=== PATIENT | male | born 1985 | race Caucasian/White ===

== ENCOUNTER 2016-11-18 10:41 | Emergency (ER) | payer OTHER ==
[2016-11-18 11:13] VITALS: BMI 30.3
--- NOTE | 2016-11-18 11:19 | PDOC ---
History of Present Illness - General History Source: Patient Exam Limitations: No Limitations - History of Present Illness Initial Comments: 11/18/16 11:52 The patient is a 30-year-old man with a significant past medical history of obesity and hypertension (recently started on medications on 10/2016) who presents to the emergency department with complaints of chest pain this morning. He states that he was working around the house when he suddenly felt short of breath followed by an episode of diaphoresis and chest pain. He states that he has experienced this in the past for which it was attributed to his anxiety. Patient states that he is currently stressed out and does not know why. No associated symptoms of fever, chills, leg pain/swelling, abdominal pain , back pain, nausea, vomiting. Allergies: No Known Drug Allergies Past Surgical History: None reported. Social History: Current everyday cigarette smoker (approximately 10 cigarettes/ day). No EtOH and recreational drug use. Primary Care Physician: Dr. Edenilson Martinez <Rosa Maria Andres - Last Filed: 11/18/16 12:11> <Soraya Phillips - Last Filed: 11/18/16 22:09> - General Chief Complaint: Chest Pain Stated Complaint: CHEST PAIN Time Seen by Provider: 11/18/16 10:59 Past History <Rosa Maria Andres - Last Filed: 11/18/16 12:11> - Past Medical History HTN: Yes (recently started on bp meds 10/31) Other medical history: obesity - Psycho/Social/Smoking Cessation Hx Suicidal Ideation: No Smoking History: Current every day smoker Number of Cigarettes Smoked Daily: 10 Information on smoking cessation initiated: Yes 'Breaking Loose' booklet given: 11/18/16 Hx Alcohol Use: No Drug/Substance Use Hx: No Substance Use Type: None <Soraya Phillips - Last Filed: 11/18/16 22:09> - Past Medical History Allergies/Adverse Reactions: Allergies Allergy/AdvReac Type Severity Reaction Status Date / Time No Known Allergies Allergy Verified 11/18/16 11:01 Home Medications: Ambulatory Orders Aspirin [ASA -] 81 mg PO DAILY 11/18/16 Lisinopril [Zestril] 10 mg PO DAILY 11/18/16 Review of Systems - Review of Systems Able to Perform ROS?: Yes Comments:: 11/18/16 11:52 GENERAL/CONSTITUTIONAL: Yes: Diaphoretic. No fever or chills. No weakness. HEAD, EYES, EARS, NOSE AND THROAT: No change in vision. No ear pain or discharge. No sore throat. CARDIOVASCULAR: Yes: Chest Pain. Shortness of breath. RESPIRATORY: No cough, wheezing, or hemoptysis. GASTROINTESTINAL: No nausea, vomiting, diarrhea or constipation. GENITOURINARY: No dysuria, frequency, or change in urination. MUSCULOSKELETAL: No joint or muscle swelling or pain. No neck or back pain. SKIN: No rash NEUROLOGIC: No headache, vertigo, loss of consciousness, or change in strength/ sensation. ENDOCRINE: No increased thirst. No abnormal weight change. HEMATOLOGIC/LYMPHATIC: No anemia, easy bleeding, or history of blood clots. ALLERGIC/IMMUNOLOGIC: No hives or skin allergy. <Rosa Maria Andres - Last Filed: 11/18/16 12:11> *Physical Exam - Vital Signs Last Vital Signs Temp Pulse Resp BP Pulse Ox 97.9 F 73 18 151/93 98 11/18/16 10:58 11/18/16 10:58 11/18/16 10:58 11/18/16 10:58 11/18/16 11:03 - Physical Exam Comments: 11/18/16 12:10 GENERAL: Awake, alert, and fully oriented, in no acute distress HEAD: No signs of trauma EYES: PERRLA, EOMI, sclera anicteric, conjunctiva clear ENT: Auricles normal inspection, hearing grossly normal, nares patent, oropharynx clear without exudates. Moist mucosa NECK: Normal ROM, supple, no lymphadenopathy, JVD, or masses LUNGS: Breath sounds equal, clear to auscultation bilaterally. No wheezes, and no crackles HEART: Regular rate and rhythm, normal S1 and S2, no murmurs, rubs or gallops ABDOMEN: Soft, nontender, normoactive bowel sounds. No guarding, no rebound. No masses EXTREMITIES: Normal range of motion, no edema. No clubbing or cyanosis. No cords, erythema, or tenderness NEUROLOGICAL: Cranial nerves II through XII grossly intact. Normal speech. <Rosa Maria Andres - Last Filed: 11/18/16 12:11> - Vital Signs Last Vital Signs Temp Pulse Resp BP Pulse Ox 97.9 F 73 18 151/93 98 07/05/17 10:58 11/18/16 10:58 11/18/16 10:58 11/18/16 10:58 11/18/16 11:03 <Soraya Phillips - Last Filed: 11/18/16 22:09> Heart Score/ECG Review - History History: Slightly suspicious - Electrocardiogram EKG: Normal - Age Age: </= 45 - Risk Factors Risk Factors Heart Score: Yes Smoking History Based on the list above the patient has:: 1-2 risk factors - Troponin Troponin: </= normal limit - Score Heart Score - Total: 1 - ECG Impressions Comment:: EKG read 11:00- NSR 85 bpm, no acute ST/T changes <Soraya Phillips - Last Filed: 11/18/16 22:09> ED Treatment Course - LABORATORY CBC & Chemistry Diagram: 11/18/16 11:24 11/18/16 11:24 - ADDITIONAL ORDERS Additional order review: 11/18/16 11:24 RBC 4.94 MCV 89.4 MCHC 34.2 RDW 13.4 MPV 9.1 Neutrophils % 64.6 Lymphocytes % 24.0 Monocytes % 9.3 Eosinophils % 1.2 Basophils % 0.9 - RADIOLOGY Radiograph Interpretation: 11/18/16 12:06 EXAM: RAD/CHEST X-RAY PORTABLE Interpreted by Dr. Jann Barrientos IMPRESSION: Frontal view of the chest is provided. There is a suboptimal inspiratory effort. Cardiac silhouette appears mildly prominent. No focal consolidation or pleural effusion is seen. There is some mild prominence of perihilar vascular markings which may be related to suboptimal inspiratory effort. Visualized bony structures appear intact. <Rosa Maria Andres - Last Filed: 11/18/16 12:11> - LABORATORY CBC & Chemistry Diagram: 11/18/16 11:24 11/18/16 11:24 - RADIOLOGY Radiology Studies Ordered: Category Date Time Status CHEST X-RAY PORTABLE* [RAD] Stat Radiology 11/18/16 11:05 Ordered <Soraya Phillips - Last Filed: 11/18/16 22:09> Medical Decision Making - Medical Decision Making Pt low risk for ACS by clinical eval. No recent travel or history of clotting disorders, making PE unlikely. EKG within normal limits. He states that his symptoms came on suddenly and resolved spontaneously. He is uncertain what has been causing his stress. No acute findings at present. Stable for DC home. <Soraya Phillips - Last Filed: 11/18/16 22:09> *DC/Admit/Observation/Transfer - Attestations Scribe Attestion: 11/18/16 11:52 Documentation prepared by Rosa Maria Andres, acting as medical scientific officer for Soraya Phillips MD. <Rosa Maria Andres - Last Filed: 11/18/16 12:11> - Discharge Dispostion Admit: No <Soraya Phillips - Last Filed: 11/18/16 22:09> Diagnosis at time of Disposition: Atypical chest pain - Discharge Dispostion Disposition: HOME Condition at time of disposition: Stable - Referrals Referrals: Edenilson Martinez [Primary Care Provider] - - Patient Instructions Printed Discharge Instructions: DI for Atypical Chest Pain
[2016-11-18 11:46] LABS: BASOPHIL 0.9 % (0-2.0); EOSINOPHIL 1.2 % (0-4.5); MCH 30.6 pg (25.7-33.7); MCHC 34.2 g/dl (32.0-35.9); MEAN CELL VOLUME 89.4 fl (80-96); MEAN PLT VOLUME 9.1 fl (7.5-11.1); NEUTROPHILS 64.6 % (42.8-82.8); PLATELET COUNT 204 K/MM3 (134-434); RDW 13.4 % (11.9-15.9); WHITE BLOOD COUNT 8.9 K/mm3 (4.0-10.0)
[2016-11-18 11:53] LABS: ALBUMIN 3.8 g/dl (3.4-5.0); ANION GAP 5 (8-16); BILIRUBIN,TOTAL 0.3 mg/dL (0.2-1.0); CALCIUM 9.4 mg/dL (8.5-10.1); CO2 31 mmol/L (21-32); CREATININE 0.9 mg/dL (0.7-1.3); GLUCOSE,RANDOM 106 mg/dL (74-106); SGOT/AST 27 U/L (15-37); SGPT/ALT 43 U/L (12-78); TOT PROT 7.5 g/dl (6.4-8.2)
[2016-11-18 11:56] LABS: ALK PHOS 122 U/L (45-117); TROPONIN I < 0.02 ng/ml (0.00-0.05)
[2016-11-18 13:44] VITALS: BP 139/81; PULSE 75; TEMP 98.1
--- NOTE | 2016-11-19 11:29 | EKG ---
Test Reason : Blood Pressure : / mmHG Vent. Rate : 085 BPM Atrial Rate : 085 BPM P-R Int : 144 ms QRS Dur : 086 ms QT Int : 330 ms P-R-T Axes : 041 003 035 degrees QTc Int : 392 ms NORMAL SINUS RHYTHM MINIMAL VOLTAGE CRITERIA FOR LVH, MAY BE NORMAL VARIANT NONSPECIFIC T WAVE ABNORMALITY ABNORMAL ECG NO PREVIOUS ECGS AVAILABLE Confirmed by LAYLA BURRIS MD ([id number]) on 11/19/2016 11:28:37 AM Referred By: Confirmed By:LAYLA BURRIS MD
== END 2016-11-18 13:44 | disposition home or self-care (01) ==
LOC: JER 10:41
DX: R07.89 Other chest pain (principal); E66.9 Obesity, unspecified; Z68.30 Body mass index [BMI] 30.0-30.9, adult; F17.210 Nicotine dependence, cigarettes, uncomplicated; I10 Essential (primary) hypertension
CPT/HCPCS: 36415; 71010-TC; 80053; 82550; 82553; 84484; 85025; 93005; 93010; 99285-25